=== PATIENT | male | born 1995 | race Caucasian/White ===

== ENCOUNTER 2017-07-08 12:49 | Emergency (ER) | payer BC ==
[2017-07-08] MEDS: HYDROCODONE/APAP (5/325) TAB PO (13:43)
[2017-07-08] MEDS: IBUPROFEN 600 MG TAB PO (13:43)
== END 2017-07-08 15:23 | disposition home or self-care (01) ==
LOC: FTE 12:49
DX: S92.322A Displaced fracture of second metatarsal bone, left foot, initial encounter for closed fracture (principal); S92.332A Displaced fracture of third metatarsal bone, left foot, initial encounter for closed fracture; S92.342A Displaced fracture of fourth metatarsal bone, left foot, initial encounter for closed fracture; X58.XXXA Exposure to other specified factors, initial encounter; Y92.9 Unspecified place or not applicable
CPT/HCPCS: 29515; 73610; 73630-LT; 99283-25

== ENCOUNTER 2018-07-24 19:09 | Emergency (ER) | payer SELFPAY, BC | END 2018-07-24 22:25 | disposition left against medical advice (07) | LOC: FTE 19:09 | DX: Z53.21 Procedure and treatment not carried out due to patient leaving prior to being seen by health care provider (principal) ==

== ENCOUNTER 2018-08-09 15:16 | Emergency (ER) | payer BC ==
[2018-08-09] MEDS: BELLADONNA/PHENOBARBITAL TAB PO (18:12)
[2018-08-09] MEDS: FAMOTIDINE 20 MG TAB PO (18:12)
[2018-08-09 18:20] LABS: ADD MAN DIFF? NO
[2018-08-09 18:24] LABS: BASOPHILS % 0.4 % (0.0-2.0); EOSINOPHILS # 0.3 10^3/ul (0.0-0.5); HEMATOCRIT 47.5 % (42.0-52.0); HEMOGLOBIN 15.5 g/dl (14.0-18.0); LYMPHOCYTES % 33.3 % (15.0-51.0); MEAN CORPUSCULAR HEMOGLOBIN 27.7 pg (29.0-33.0); MEAN CORPUSCULAR HGB CONC 32.6 g/dl (32.0-37.0); MEAN CORPUSCULAR VOLUME 84.8 fl (82.0-101.0); MEAN PLATELET VOLUME 9.9 fl (7.4-10.4); MONOCYTE # 0.9 10^3/ul (0.3-0.9); MONOCYTES % 9.6 % (0.0-11.0); NEUTROPHIL # 4.8 10^3/ul (1.6-7.5); NEUTROPHILS % 52.9 % (39.0-77.0); PLATELET COUNT 266 10^3/UL (140-415); RED CELL DISTRIBUTION WIDTH 12.3 % (11.5-14.5)
[2018-08-09 18:24] LABS: WHITE BLOOD COUNT 9.1 10^3/ul (4.8-10.8)
[2018-08-09 18:27] LABS: ADD UMIC NO; UR ASCORBIC ACID 40 mg/dL (NEGATIVE); UR BILIRUBIN (Dip) NEGATIVE (NEGATIVE); UR BLOOD (Dip) NEGATIVE (NEGATIVE); UR CLARITY CLEAR (CLEAR); UR COLOR YELLOW (YELLOW); UR GLUCOSE (Dip) NEGATIVE (NEGATIVE); UR KETONES (Dip) NEGATIVE (NEGATIVE); UR LEUKOCYTE ESTERASE (Dip) NEGATIVE Leu/ul (NEGATIVE); UR NITRITE (Dip) NEGATIVE (NEGATIVE); UR SPECIFIC GRAVITY (Dip) 1.028 (1.003-1.030); UR TOTAL PROTEIN (Dip) NEGATIVE (NEGATIVE); UR UROBILINOGEN (Dip) NEGATIVE (NEGATIVE)
[2018-08-09 18:41] LABS: ALANINE AMINOTRANSFERASE 29 IU/L (13-69); ALBUMIN 4.9 g/dl (3.3-4.9); ALBUMIN/GLOBULIN RATIO 1.58; ALKALINE PHOSPHATASE 57 IU/L (42-121); ANION GAP 14 (5-13); ASPARTATE AMINO TRANSFERASE 25 IU/L (15-46); BLOOD UREA NITROGEN 20 mg/dl (7-20); CALCIUM 10.2 mg/dl (8.4-10.2); CARBON DIOXIDE 32 mmol/L (21-31); CHLORIDE 99 mmol/L (97-110); CREATININE 0.81 mg/dl (0.61-1.24); Estimated GFR > 60 mL/min (>60); GLUCOSE 95 mg/dl (70-220); LIPASE 63 U/L (23-300); POTASSIUM 4.4 mmol/L (3.5-5.1); SODIUM 145 mmol/L (135-144)
== END 2018-08-09 19:33 | disposition home or self-care (01) ==
LOC: FTE 15:16
DX: K29.70 Gastritis, unspecified, without bleeding (principal)
CPT/HCPCS: 36415; 74176; 80053; 81003; 83690; 85025; 99284-25

== ENCOUNTER 2018-12-12 12:55 | Day surgery (SDC) | payer BC ==
[2018-12-12] MEDS ORDERED: MIDAZOLAM 1 MG/ML 2 ML INJ ×3 (15:56)
[2018-12-12] MEDS ORDERED: FENTAnyl 50 MCG/ML VIAL (15:56)
== END 2018-12-12 16:03 | disposition home or self-care (01) ==
LOC: GIL 12:55
DX: K21.0 Gastro-esophageal reflux disease with esophagitis (principal); K29.70 Gastritis, unspecified, without bleeding
CPT/HCPCS: 43239; 88305; 88312; 88313